=== PATIENT | male | born 1960 | race Asian ===

== ENCOUNTER 2016-11-22 13:42 | Inpatient (IN) | payer MEDICAID ==
[~2016-11-22] VITALS: Ht 188 cm; Wt 95.3 kg
[2016-11-22 13:42] VITALS: BP_SYST 174
[2016-11-22 14:33] LABS: EOSINOPHILS # (AUTO) 0.1 K/uL (0.0-0.4); LYMPHOCYTES % (AUTO) 22.6 % (20.5-51.5); MEAN CORPUSCULAR HEMOGLOBIN 31 pg (27-31); MEAN CORPUSCULAR HGB CONC 33 % (32-36); MEAN CORPUSCULAR VOLUME 94 fL (79.0-98.0); MONOCYTES # (AUTO) 0.3 K/uL (0.0-1.0); NEUTROPHILS % (AUTO) 69.9 % (40.0-70.0)
[2016-11-22 14:42] LABS: BASOPHILS % (AUTO) 0.5 % (0.0-2.0); EOSINOPHILS % (AUTO) 1.6 % (0.0-4.0); HEMATOCRIT 49.4 % (36-54); HEMOGLOBIN 16.2 g/dL (14.0-18.0); LYMPHOCYTES # (AUTO) 1.2 K/uL (1.0-5.5); MONOCYTES % (AUTO) 5.4 % (1.7-9.3); NEUTROPHILS # (AUTO) 3.9 K/uL (1.8-7.7); PLATELET COUNT (AUTO) 218 K/uL (130-430); RED BLOOD CELL COUNT(AUTO) 5.26 MIL/uL (4.2-6.2); WHITE BLOOD COUNT (AUTO) 5.5 K/uL (4.8-10.8)
[2016-11-22 14:46] LABS: CALCIUM 8.6 mg/dL (8.4-11.0); CREATININE 0.98 mg/dL (0.55-1.30); POTASSIUM 3.8 mmol/L (3.5-5.1)
[2016-11-22 14:48] LABS: INR 1.2 (0.80-1.20); PROTHROMBIN TIME 13.3 SECS (9.5-12.5)
[2016-11-22 15:03] LABS: ALBUMIN 3.9 g/dL (3.4-4.8); TOTAL BILIRUBIN 0.7 mg/dL (0.0-1.0)
[2016-11-22] MEDS ORDERED: NACL 0.9% 1,000 ML IV ONE (17:00)
[2016-11-22 17:25] VITALS: BP_SYST 153
[2016-11-22] MEDS ORDERED: hydrALAZINE HCL 20 MG/ML VIAL IVP PRN (17:45)
[2016-11-22 20:00] VITALS: BP_SYST 144
[2016-11-22] MEDS: METOPROLOL TARTRATE 25 MG TABLET PO SCH (20:34)
[2016-11-23] VITALS (7 sets, daily range): BP systolic 92–136
[2016-11-23] MEDS: METOPROLOL TARTRATE 25 MG TABLET PO SCH ×2 (08:09→09:00)
[2016-11-23] MEDS ORDERED: ENOXAPARIN SODIUM 40 MG/0.4 ML SYRINGE SUBCUT SCH (09:00)
[2016-11-23] MEDS ORDERED: PANTOPRAZOLE SODIUM 40 MG TAB PO SCH (09:00)
== END 2016-11-23 14:50 | disposition home or self-care (01) | DRG 243 ==
LOC: SED 13:42 → STU 16:56
PROVIDERS: ADMIT General Practice; ATTEND General Practice
DX: K21.9 Gastro-esophageal reflux disease without esophagitis (principal); I10 Essential (primary) hypertension; Z82.49 Family history of ischemic heart disease and other diseases of the circulatory system; Z91.19 Patient's noncompliance with other medical treatment and regimen
CPT/HCPCS: 36415; 71010; 80053; 82550-TC; 84484; 85025; 85379; 85610-TC; 85730-TC; 93005; 93306; 99291; J1650

== ENCOUNTER 2021-09-15 18:40 | Emergency (ER) | payer MEDICAID ==
[~2021-09-15] VITALS: Ht 180.3 cm; Wt 93.4 kg
[2021-09-15 18:45] VITALS: BP_SYST 186
--- NOTE | 2021-09-15 18:45 | NUR ---
Patient to ER lobby. MD made aware and pt waiting in lobby until bed becomes available.
== END 2021-09-15 22:10 | disposition home or self-care (01) ==
LOC: SED 18:40
DX: H02.401 Unspecified ptosis of right eyelid (principal)
CPT/HCPCS: 99282